=== PATIENT | male | born 1940 | race Caucasian/White ===

== ENCOUNTER → 2018-03-10 | Outpatient (CLI) | payer MEDICARE ==
[~2018-03-10] MED LIST: ALBUTEROL INH; AMLO5TAB4 PO; AMOX500T PO; APIX5TAB PO; ATOR80TA PO; AZEL205.2 NAS; CHOL20002 PO; FLUT1DIS3 INH; FURO40TA6 PO; GLIP10TA13 PO; INSU100V8 SQ; LOSA100T2 PO; METF500T5 PO; MULT-516 PO; OMEG1CAP23 PO; OMEP20TA62 PO; SPIR25TA5 PO
[2018-03-10 15:04] LABS: BASOPHILS # (AUTO) 0.01 x10^3/uL (0-0.1); BASOPHILS % (AUTO) 0 % (0-1); EOSINOPHILS # (AUTO) 0.14 x10^3/uL (0-0.4); EOSINOPHILS % (AUTO) 3 % (1-7); LYMPHOCYTES # (AUTO) 0.85 x10^3/uL (1-3.4); LYMPHOCYTES % (AUTO) 16 % (22-44); MD NO; MEAN CORPUSCULAR HGB CONC 33.7 g/dL (33.2-36.2); MEAN CORPUSCULAR VOLUME 89.1 fL (81-97); MEAN PLATELET VOLUME 8.4 fL (7.4-10.4); MONOCYTES # (AUTO) 0.48 x10^3/uL (0.2-0.8); MONOCYTES % (AUTO) 9 % (2-9); NEUTROPHILS # (AUTO) 3.79 x10^3/uL (1.8-6.8); NEUTROPHILS % (AUTO) 72 % (42-75); PLATELET COUNT 183 x10^3/uL (130-400); RED BLOOD COUNT 4.22 x10^6/uL (4.38-5.82); RED CELL DISTRIBUTION WIDTH 19.5 % (9.4-14.8)
[2018-03-10 15:13] LABS: ANION GAP 8 mmol/L (5-15); CHLORIDE 101 mmol/L (98-107); CREATININE 1.08 mg/dL (0.7-1.3)
== END | disposition home or self-care (01) ==
LOC: STAR 14:10
PROVIDERS: ATTEND Surgery
DX: Z01.812 Encounter for preprocedural laboratory examination (principal); Z79.899 Other long term (current) drug therapy
CPT/HCPCS: 36415; 80048; 85025

== ENCOUNTER 2018-03-17 06:18 | Day surgery (SDC) | payer MEDICARE ==
[~2018-03-17] VITALS: Ht 185.4 cm; Wt 93.3 kg
[2018-03-17] MEDS ORDERED: LACTATED RINGERS 1,000 ML IV SCH (07:08)
[2018-03-17 07:09] VITALS: BP 134/74
[2018-03-17] MEDS ORDERED: LIDOCAINE-MPF 2%, 2ML ONE (08:00)
[2018-03-17] MEDS ORDERED: FENTANYL PF 100 MCG/2ML ONE (08:20)
[2018-03-17] MEDS ORDERED: PROTAMINE SULFATE 10 MG/ML, 25ML ONE (08:21)
[2018-03-17] MEDS ORDERED: FLUMAZENIL 0.1 MG/1 ML, 5ML ONE (08:21)
[2018-03-17] MEDS ORDERED: NALOXONE 1 MG/ML, 2ML ONE (08:21)
[2018-03-17] MEDS ORDERED: NITROGLYCERIN 5 MG/ML, 10ML ONE (08:21)
[2018-03-17] MEDS ORDERED: MIDAZOLAM 1 MG/ML, 5ML ONE (08:21)
[2018-03-17] MEDS ORDERED: HEPARIN 1,000 UNITS/ML, 10ML ONE (08:21)
[2018-03-17] MEDS ORDERED: SODIUM CHLORIDE 0.9% 1,000 ML IV SCH (10:05)
[2018-03-17] MEDS ORDERED: VISIPAQUE 270 MG/ML, 50ML BOTTLE ONE (10:30)
== END 2018-03-17 13:20 | disposition home or self-care (01) ==
LOC: OUT 06:18
PROVIDERS: ATTEND Surgery
DX: T81.89XA Other complications of procedures, not elsewhere classified, initial encounter (principal); J45.909 Unspecified asthma, uncomplicated; I48.91 Unspecified atrial fibrillation; K21.9 Gastro-esophageal reflux disease without esophagitis; E78.00 Pure hypercholesterolemia, unspecified; E11.22 Type 2 diabetes mellitus with diabetic chronic kidney disease; I12.9 Hypertensive chronic kidney disease with stage 1 through stage 4 chronic kidney disease, or unspecified chronic kidney disease; N18.2 Chronic kidney disease, stage 2 (mild); Y83.8 Other surgical procedures as the cause of abnormal reaction of the patient, or of later complication, without mention of misadventure at the time of the procedure; Y92.89 Other specified places as the place of occurrence of the external cause; Z98.890 Other specified postprocedural states; Z79.899 Other long term (current) drug therapy; Z72.89 Other problems related to lifestyle; Z88.8 Allergy status to other drugs, medicaments and biological substances; Z85.46 Personal history of malignant neoplasm of prostate; Z88.1 Allergy status to other antibiotic agents
CPT/HCPCS: 37229; 75710; 82962; 99156; 99157; C1724; C1725; C1769; C1894; J1644; J2250; J3010; J3490; Q9966; J2720; J2310